=== PATIENT | female | born 1985 | race Caucasian/White ===

== ENCOUNTER → 2016-06-26 | Outpatient (CLI) | payer OTHER | LOC: BMCIMAGING 16:03 | PROVIDERS: ATTEND Physician Assistant | DX: M25.561 Pain in right knee (principal); Z18.10 Retained metal fragments, unspecified ==

== ENCOUNTER → 2018-09-01 | Outpatient (CLI) | payer BC | LOC: FIMAGING 10:13 | PROVIDERS: ATTEND Physician Assistant | DX: Z30.431 Encounter for routine checking of intrauterine contraceptive device (principal) ==